=== PATIENT | male | born 1995 | race Caucasian/White ===

== ENCOUNTER 2018-02-07 13:13 | Emergency (ER) | payer BC, MEDICAID ==
[~2018-02-07] VITALS: Ht 182.9 cm; Wt 77.1 kg
[~2018-02-07 13:13] MED LIST: ACHD5005 PO; CIPR-225 PO; ONDA4TAB8 SL
--- OUTSIDE RECORDS SUMMARY | 2018-02-07 13:20 | XMS REPORT ---
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 Name Role Phone GUSTAVO CHAPMAN Unavailable PROBLEMS Type Condition ICD9-CM Code [id number] Code Onset Dates Condition Status SNOMED Code Problem Pain in soft tissues of limb 729.5 Active 12234291 Problem Open wound of finger(s), without mention of complication 883.0 Active 6972554 Problem Other specified examination V72.85 Active 859392173 ALLERGIES No Known Allergies ENCOUNTERS Encounter Location Date Diagnosis [place] [id number] [id number] Feb, Dental caries K02.9 [place] [id number] [id number] January, Dental examination Z01.20 [place] [address] [place] [id number] [place] [phone] 14 Dec, 2014 [facility] [id number] [place] [phone] Dec, [place] [address] [place] [id number] [place] [phone] Nov, [facility] [address] [facility] [id number] [place] [phone] Nov, [facility] [id number] [place] [phone] Apr, IMMUNIZATIONS No Known Immunizations SOCIAL HISTORY Never Assessed REASON FOR VISIT TE 18 & 19 PLAN OF CARE Activity Details Follow Up 1 Week Reason:post op VITAL SIGNS Height 70 in 2017-02-15 Blood pressure systolic 138 mmHg 2017-02-15 Blood pressure diastolic 93 mmHg 2017-02-15 MEDICATIONS Medication Instructions Dosage Frequency Start Date End Date Duration Status [place] 5-325 MG Orally 1 P.O. Q6H PRN PAIN 1 tablet as needed 4 days Active RESULTS No Results PROCEDURES Procedure Date Ordered Result Body Site SURG REMOVAL ERUPTED TOOTH February 15, 2017 SURG REMOVAL ERUPTED TOOTH February 15, 2017 INSTRUCTIONS MEDICATIONS ADMINISTERED No Known Medications
--- OUTSIDE RECORDS SUMMARY | 2018-02-07 13:20 | XMS REPORT ---
Author Author GUSTAVO CHAPMAN [facility] Address [address] [place] [address] Care Team Providers Care Tick Eradicator Name Role Phone GUSTAVO CHAPMAN Unavailable PROBLEMS Type Condition ICD9-CM Code [id number] Code Onset Dates Condition Status SNOMED Code Problem Pain in soft tissues of limb 729.5 Active 29781585 Problem Open wound of finger(s), without mention of complication 883.0 Active 9058944 Problem Other specified examination V72.85 Active 329979895 ALLERGIES No Known Allergies ENCOUNTERS Encounter Location Date Diagnosis [place] [id number] [phone] Feb, Dental caries K02.9 [place] [id number] [phone] January, Dental examination Z01.20 [place] [address] [place] [phone] Dec, 2014 [facility] [address] [address] Dec, [place] [address] [place] [id number] [place] [phone] Nov, [facility] [address] [facility] [id number] [place] [phone] Nov, [facility] [id number] [place] [phone] Apr, IMMUNIZATIONS No Known Immunizations SOCIAL HISTORY Never Assessed REASON FOR VISIT ZEFERINO PLAN OF CARE Activity Details Follow Up 1-2Week Reason:surgical te's 18 & 19 VITAL SIGNS Blood pressure systolic 148 mmHg 2017-01-25 Blood pressure diastolic 101 mmHg 2017-01-25 MEDICATIONS Medication Instructions Dosage Frequency Start Date End Date Duration Status Ibuprofen 800 MG Orally every 6 hrs 1 tablet 6h 4 days Active Clindamycin HCl 150 MG Orally with probiotics 3 times a day 2 capsules 8h 5 day(s) Active RESULTS No Results PROCEDURES Procedure Date Ordered Result Body Site LTD ORAL EVALUATION - PROBLEM FOCUS January 25, 2017 INTRAORL-PERIAPICAL 1 FILM [id number] January 25, 2017 BITEWING - SINGLE FILM January 25, 2017 INSTRUCTIONS MEDICATIONS ADMINISTERED No Known Medications
[2018-02-07] MEDS ORDERED: METH4TAB PO (13:46)
--- NOTE | 2018-02-07 13:47 | ED Integumentary General ---
General Stated Complaint: RASH Source: patient Exam Limitations: no limitations History of Present Illness Date Seen by Provider: Feb 07, 2018 Time Seen by Provider: 13:41 Initial Comments to ER with complaints of a pruritic rash. This is over the anterior chest and abdomen, anterior feet and ankles, superior aspect of the shoulders. He went on a float trip over this past weekend and he is not sure whether this represents poison stefanie or just a sunburn. He states is very itchy. States that he has had reactions to poison stefanie.he also needs a work note. Timing/Duration: this morning, getting worse Severity: moderate Associated Symptoms: rash Allergies and Home Medications Allergies Coded Allergies: No Known Drug Allergies (Unverified , 08/31/15) Home Medications Ciprofloxacin HCl 500 Mg Tablet, 500 MG PO BID Prescribed by: ANANYA VEGA on 08/31/15 1213 Hydrocodone Bit/Acetaminophen 1 Each Tablet, 1 EACH PO Q4H PRN for PAIN Prescribed by: ANANYA VEGA on 08/31/15 1213 Ondansetron 4 Mg Tab.rapdis, 4 MG SL Q4H PRN for NAUSEA/VOMITING Prescribed by: ANANYA VEGA on 08/31/15 1213 Patient Home Medication List Home Medication List Reviewed: Yes Constitutional: see HPI EENTM: see HPI Respiratory: no symptoms reported Cardiovascular: no symptoms reported Genitourinary: no symptoms reported Musculoskeletal: no symptoms reported Skin: see HPI Psychiatric/Neurological: No Symptoms Reported Endocrine: No Symptoms Reported Past Gpthziu-Wmeejm-Jpmwes Hx Patient Social History Recent Foreign Travel: No Contact w/Someone Who Travel: No Family Medical History GI Disease Physical Exam Vital Signs Capillary Refill : General Appearance: WD/WN, no apparent distress HEENT: PERRL/EOMI, normal ENT inspection Neck: non-tender, full range of motion Cardiovascular: regular rate, rhythm, no murmur Respiratory: normal breath sounds, no respiratory distress, no accessory muscle use Gastrointestinal: normal bowel sounds, non tender Extremities: normal range of motion, non-tender Neurologic/Psychiatric: alert, normal mood/affect, oriented x 3 Skin: normal color, warm/dry Skin Problem Location: torso, other Skin Problem Character: other (erythematous skin over the anterior ankles dorsal feet, anterior torso, superior aspect of the shoulders. There are no vesicles or papules to suggest rhus dermatitis.) Departure Impression Primary Impression: Rash and nonspecific skin eruption Additional Impression: Sunburn Disposition: 01 HOME, SELF-CARE Condition: Stable Departure-Patient Inst. Decision time for Depature: 13:45 Referrals: NO,LOCAL PHYSICIAN (PCP/Family) Primary Care Physician Patient Instructions: Sunburn Add. Discharge Instructions: 1. Use Benadryl as needed for itching 1 tablet every 4-6 hours 2. Steroids as directed Scripts Methylprednisolone (Medrol) 4 Mg Tab.ds.pk 4 MG PO UD, #1 PKG Prov: TISHA OLGUIN APRN 02/07/18 Work/School Note: Work Release Form Date Seen in the Emergency Department: Feb 07, 2018 Return to Work: Feb 08, 2018 TISHA OLGUIN APRN Feb 07, 2018 13:46
[2018-02-07 13:49] VITALS: BP 125/82
== END 2018-02-07 13:49 | disposition home or self-care (01) ==
LOC: EDUNIT# 13:13 → ER 13:16
DX: L55.9 Sunburn, unspecified (principal); R21 Rash and other nonspecific skin eruption
CPT/HCPCS: 99282